=== PATIENT | female | born 1990 | race Two or more races ===

== ENCOUNTER 2020-07-10 22:55 | Emergency (ER) | payer MEDICAID ==
[~2020-07-10] VITALS: Ht 160 cm; Wt 78.9 kg
[2020-07-10 23:20] VITALS: BP 100/66
[2020-07-10 23:57] LABS: Urine Bacteria FEW /hpf (None Seen); Urine Blood 2+ /uL (Negative); Urine Mucus FEW (None Seen); Urine Specific Gravity 1.031 (1.001-1.035); Urine WBC 1 /hpf (0 - 5)
== END 2020-07-11 03:31 | disposition home or self-care (01) ==
LOC: ER 22:59
DX: O20.9 Hemorrhage in early pregnancy, unspecified (principal); Z3A.01 Less than 8 weeks gestation of pregnancy
CPT/HCPCS: 36415; 76801; 76817; 81001; 84702